=== PATIENT | male | born 1980 | race Caucasian/White ===

== ENCOUNTER 2019-06-23 01:41 | Emergency (ER) | payer OTHER ==
[~2019-06-23] VITALS: Ht 188 cm; Wt 104.3 kg
[~2019-06-23 01:41] MED LIST: RANI150 PO
[2019-06-23] MEDS ORDERED: EPIPEN 2-P0.3 MG/0.3 IM (02:23)
[2019-06-23] MEDS ORDERED: Prednisone20 MG PO (02:23)
== END 2019-06-23 04:07 | disposition home or self-care (01) ==
LOC: ER 01:41
DX: T78.2XXA Anaphylactic shock, unspecified, initial encounter (principal)
CPT/HCPCS: 94640; 96372-59; 96374; 96375; 99284-25; J0171; J2930; J7030